=== PATIENT | male | born 1975 | race Hispanic/Latino ===

== ENCOUNTER → 2023-08-06 08:52 | Outpatient (REF) | payer OTHER, SELFPAY ==
[2023-08-06 09:42] LABS: ALT (SGPT) 41 U/L (0-50); AST (SGOT) 36 U/L (17-59); Alkaline Phosphatase 81 U/L (38-126); Blood Urea Nitrogen 19 mg/dl (9-20); Calcium 9.4 mg/dl (8.4-10.2); Carbon Dioxide 27 mmol/L (22-30); Chloride 104 mmol/L (98-107); Glucose 103 mg/dl (70-99); HDL Cholesterol 55 mg/dl; LDL Cholesterol, Calculated 136 mg/dl; Potassium 4.2 mmol/L (3.5-5.1); Sodium 137 mmol/L (135-145); Total Bilirubin 1.4 mg/dl (0.2-1.3); Total Cholesterol 264 mg/dl (50-199); Total Protein 8.2 g/dl (6.3-8.2); Triglyceride 365 mg/dl (10-149); Very Low Density Lipoprotein 73 mg/dl (0-30); eGFR > 60.00
[2023-08-06 11:05] LABS: Glycohemoglobin (HgbA1c) 5.6 % (4.0-5.6)
== END ==
LOC: CLINIC 08:52
PROVIDERS: ATTENDING PHYSICIAN Nurse Practitioner Adult Health
DX: E78.2 Mixed hyperlipidemia (principal); K76.0 Fatty (change of) liver, not elsewhere classified; Z83.3 Family history of diabetes mellitus
CPT/HCPCS: 36415; 80053; 80061; 83036

== ENCOUNTER → 2023-09-24 09:11 | Outpatient (REF) | payer OTHER, SELFPAY ==
[2023-09-24 10:24] LABS: ALT (SGPT) 42 U/L (0-50); AST (SGOT) 32 U/L (17-59); Albumin 4.8 g/dl (3.5-5.0); Alkaline Phosphatase 83 U/L (38-126); Direct Bilirubin 0.3 mg/dl (0.0-0.4); Total Bilirubin 1.1 mg/dl (0.2-1.3); Total Protein 7.7 g/dl (6.3-8.2)
== END ==
LOC: REG 09:11
PROVIDERS: ATTENDING PHYSICIAN Nurse Practitioner Adult Health
DX: E78.2 Mixed hyperlipidemia (principal)
CPT/HCPCS: 36415; 80076

== ENCOUNTER 2023-11-04 08:58 | Emergency (ER) | payer SELFPAY ==
[2023-11-04 08:58] VITALS: BMI 33.4
[2023-11-04 09:09] VITALS: BP 131/87
[2023-11-04] MEDS: NSS 1000 IV (09:45)
--- NOTE | 2023-11-04 09:50 | ED.GENMED ---
History of Present Illness
<Lolita Goodman ERP MANAGER - Last Filed: 11/05/23 09:49>
General
Chief Complaint: Abdominal Pain
Source: patient and family (son at bedside helped interpret. Pt understands some Occitan)
Exam Limitations: none
Time Seen by Provider: 11/04/23 09:15
Nursing documentation reviewed up to this point in time: agreed with
History of Present Illness
History of Present Illness:
48 yo male w h/o appendectomy, HLD presents stating he's had 4 days of increasing abdominal bloating and pain. Denies n/v/d/c. Denies fever/chills. Last BM this a.m.
Past History
<Lolita Goodman, ERP MANAGER - Last Filed: 11/05/23 09:49>
Past History
ED Past Medical History: None
ED Past Surgical History: None
Social History
Tobacco: Non-smoker
Alcohol: None
Drug: None
Personal:
Living: with family
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
Review of Systems
<Lolita Goodman ERP MANAGER - Last Filed: 11/05/23 09:49>
Review of Systems
Allergies reviewed?: Yes
All Other Systems: ROS reviewed and negative except as documented in HPI and ROS
Constitutional: Denies fever
Respiratory: Denies trouble breathing
Cardiac: Denies chest pain
ABD/GI: Reports abdominal pain; Denies nausea, vomiting, diarrhea, constipated, bloody stools or black stools
: Denies dysuria, difficulty voiding or urgency
Musculoskeletal: Reports no symptoms
Skin: Reports no symptoms
Neurological: Reports no symptoms
Phy Exam
<Lolita Goodman, ERP MANAGER - Last Filed: 11/05/23 09:49>
Physical Exam
Physical Exam:
GENERAL: No acute distress. A&Ox3.
CONSTITUTIONAL: Afebrile.
EYES: Clear, conjunctivae normal
ENMT: moist mucus membranes, Pharynx nl
RESPIRATORY: Regular respirations, nonlabored, lungs clear.
CARDIOVASCULAR: Regular rate and rhythm, no murmurs, no rubs.
GI: distended, semi firm, cannot elicit particular area of tenderness with deep palpation, no guarding, no audible BS
MUSCULOSKELETAL: Moves with ease. Well perfused.
SKIN: Warm, dry, normal
PSYCH: Normal mood and affect. Well kept, interactive and appropriate
NEUROLOGIC: Awake, alert and oriented. No focal neurological deficits
Course
<Lolita Goodman ERP MANAGER - Last Filed: 11/05/23 09:49>
Orders/Labs/Results
Orders:
Orders
11/04/23 09:33
CT Abd/Pel (IV only)-DH only Urgent
Comment:
Reason For Exam: pain, distention
11/04/23 09:34
0.9% Sodium Chloride 1000 ml [Nss] 1,000 ml IV BOLUS
11/04/23 09:47
Complete Blood Count/With Diff Urgent
Comprehensive Metabolic Panel Urgent
Lipase Urgent
11/04/23 10:30
Morphine Sulfate 4 mg IV NOW STA
11/04/23 10:43
Urinalysis Reflex To Culture Urgent
Date Specimen was Collected: 11/04/23
Time Specimen was Collected: 10:42
Abnormal Lab Results
11/04/23
09:47
RBC 4.60 L 10^6/uL
(4.70-6.10)
Plt Count 110 L 10^3/uL
(130-400)
MPV 11.9 H fL
(7.4-10.4)
Absolute Monos (auto) 0.9 H 10^3/uL
(0.1-0.6)
Monocytes % 13.7 H %
(1.7-9.3)
Glucose 108 H mg/dl
(70-99)
Total Bilirubin 3.9 H mg/dl
(0.2-1.3)
11/04/23 09:47
11/04/23 09:47
Vital Signs
Initial and Last Documented VS:
Initial Vital Signs
Temp Pulse Resp BP Pulse Ox
98.2 F 70 17 131/87 97
11/04/23 09:09 11/04/23 09:09 11/04/23 09:09 11/04/23 09:09 11/04/23 09:09
Last Documented Vital Signs
Temp Pulse Resp BP Pulse Ox
98.2 F 70 17 124/77 97
11/04/23 09:09 11/04/23 09:09 11/04/23 09:09 11/04/23 10:44 11/04/23 10:45
<Greta Roth, DO - Last Filed: 11/04/23 12:09>
Orders/Labs/Results
Orders:
Orders
11/04/23 09:33
CT Abd/Pel (IV only)-[facility] only Urgent
Comment:
Reason For Exam: pain, distention
11/04/23 09:34
0.9% Sodium Chloride 1000 ml [Nss] 1,000 ml IV BOLUS
11/04/23 09:47
Complete Blood Count/With Diff Urgent
Comprehensive Metabolic Panel Urgent
Lipase Urgent
11/04/23 10:30
Morphine Sulfate 4 mg IV NOW STA
11/04/23 10:43
Urinalysis Reflex To Culture Urgent
Date Specimen was Collected: 11/04/23
Time Specimen was Collected: 10:42
Abnormal Lab Results
11/04/23
09:47
RBC 4.60 L 10^6/uL
(4.70-6.10)
Plt Count 110 L 10^3/uL
(130-400)
MPV 11.9 H fL
(7.4-10.4)
Absolute Monos (auto) 0.9 H 10^3/uL
(0.1-0.6)
Monocytes % 13.7 H %
(1.7-9.3)
Glucose 108 H mg/dl
(70-99)
Total Bilirubin 3.9 H mg/dl
(0.2-1.3)
11/04/23 09:47
11/04/23 09:47
Vital Signs
Initial and Last Documented VS:
Initial Vital Signs
Temp Pulse Resp BP Pulse Ox
98.2 F 70 17 131/87 97
11/04/23 09:09 11/04/23 09:09 11/04/23 09:09 11/04/23 09:09 11/04/23 09:09
Last Documented Vital Signs
Temp Pulse Resp BP Pulse Ox
98.2 F 70 17 124/77 97
11/04/23 09:09 11/04/23 09:09 11/04/23 09:09 11/04/23 10:44 11/04/23 10:45
<Lolita Goodman ERP MANAGER - Last Filed: 11/05/23 09:49>
MDM/Problems Addressed
Differential Diagnosis Includes:
bowel obstruction, diverticulitis, colitis, pancreatitis, GERD
MDM/Problems Addressed:
48 yo male w h/o appendectomy, HLD, GERD on Famotidine, Metamucil. presents stating he's had 4 days of increasing abdominal bloating and pain. Denies n/v/d/c. Denies fever/chills. Last BM this a.m.
10:15 AM
CBC with no clinically significant abnormality
CMP bilirubin elevated at 3.9 otherwise normal
Lipase normal
11:30 AM:
CAT scan abdomen pelvis without p.o. or IV contrast radiology report read:IMPRESSION:
No acute abnormality in the abdomen or pelvis.
Hepatomegaly and hepatic steatosis.
Splenomegaly, new since 2018.
Colonic diverticulosis without acute diverticulitis.
With elevated bilirubin, GB and ducts are normal on CT scan ([place] Syndrome?)
U/A unremarkable.
Case discussed with Dr. Roth who examined pt.
There is nothing in workup today to explain patient's pain. Suspect gastric etiology with his hx of GERD
He is taking his Famotidine and Metamucil as prescribed and also Gas ex
Referred to GI and back to [facility]
He is up and ambulating, appears comfortable.
Ambulated out with normal gait at discharge
<Lolita Goodman, ERP MANAGER - Last Filed: 11/05/23 09:49>
*Critical Care Note
Total Time (30-74mins, 75-104mins- exclusive of procedures): Not Applicable
ED Attending Note
<Lolita Goodman, ERP MANAGER - Last Filed: 11/05/23 09:49>
-
Portions of this chart may have been created with voice recognition software.� Occasional wrong word or��sound alike� substitutions may have occurred due to the inherent limitations of voice recognition software.
<Greta Roth DO - Last Filed: 11/04/23 12:09>
ED Attending Note
Patient seen and examined by attending physician: Yes
I performed the substantive portion of visit, reviewed & personally made and approve the management plan that is documented in note by myself or CLAUDIO.: Yes
I performed a history and physical exam of patient and discussed management with resident, I reviewed resident's note and agree with documented findings and plan of care.: Yes
ED Attending Note:
Patient seen and evaluated at bedside. 48-year-old male presenting for 4 days of abdominal pain with distention. Denies vomiting or changes in bowel habits. Reports history of appendectomy in the past. Denies fevers. Vital signs stable in the
emergency department.
On exam, patient resting comfortably. He is nontoxic. Mild distention to the abdomen. No focal tenderness to the abdomen, soft and nondistended. No CVA tenderness. Workup completed by CLAUDIO with unremarkable laboratory analysis. Patient does
have elevated bilirubin, however no focal tenderness to the right upper quadrant without concern for cholecystitis or choledocholithiasis. Urinalysis without any sign of bilirubin as well. CT abdomen pelvis without acute pathology to explain
patient's symptoms. Patient does have history of GERD. Notes that symptoms are worse with food. Suspect possible gastric component. Ultimately feel the patient is stable for discharge with close interval follow-up with PCP and continued
outpatient supportive therapy
Discharge Plan
Departure
Patient Disposition: Home (Routine Discharge)
Date of Disposition: 11/04/23
Time of Disposition: 12:15
Patient with high blood pressure during this ER visit?: No
Condition: Fair
Discharge Problem:
Abdominal bloating
Instructions: Gas and bloating, Abdominal Pain
Prescriptions:
No Action
hydrocortisone [Proctosol HC] 28.35 GM cream with perineal applicator
28.35 gm TP BID Qty: 1 0RF
Referrals:
Cathleen Flores NP [Family Provider] - Call in 1-3 days for appt
Carri Moore MD [Active] - Next open appointment
Activity Restrictions/Additional Instructions:
As we discussed, nothing worrisome in your workup here today.
Call the clinic today and make an appointment for next week for recheck.
Ask them if they can set you up with an appointment with the GI doctor Dr. Moore
Interventions
Interventions:
*Risk Screen - Suicide Last Done: 11/04/23 12:38
*General Assessment Last Done: 11/04/23 12:38
*Neglect/Abuse Screening Last Done: 11/04/23 12:38
ED- Fall Risk Assessment Last Done: 11/04/23 10:01
*ED COVID-19 Vaccine History Last Done: 11/04/23 12:38
*Nursing Disposition Last Done: 11/04/23 12:38
AA-Urdllh-Abtcnqawwu Assessment Last Done: 11/04/23 10:01
Discharge Date and Time
Discharge Date/Time: 11/04/23 12:40
Print Language: SPANISH
[2023-11-04 10:06] LABS: % Basophils 0.9 % (0-2); % Eosinophils 4.2 % (0-6); % Immature Granulocytes 0.2 % (0-0.5); % Lymphocytes 33.3 % (20.5-51.1); % Monocytes 13.7 % (1.7-9.3); % Neutrophils 47.7 % (42.2-75.2); Absolute Basophils 0.1 10^3/uL (0-0.2); Absolute Eosinophils 0.3 10^3/uL (0-0.7); Absolute Lymphocytes 2.2 10^3/uL (1.2-3.4); Absolute Monocytes 0.9 10^3/uL (0.1-0.6); Absolute Neutrophils 3.2 10^3/uL (1.4-6.5); Hematocrit 40.2 % (39.0-52.0); Hemoglobin 13.9 g/dL (13.0-18.0); Mean Corp Hgb Conc. 34.6 g/dL (33.0-37.0); Mean Corpuscular Hgb 30.2 pg (27.0-31.0); Mean Corpuscular Volume 87.4 fL (80.0-94.0); Mean Platelet Volume 11.9 fL (7.4-10.4); Nucleated Red Blood Cells % 0 % (-); Platelet Count 110 10^3/uL (130-400); Red Cell Dist. Width 12.9 % (11.5-14.5); White Blood Cell Count 6.6 10^3/uL (4.8-10.8)
[2023-11-04 10:18] LABS: ALT (SGPT) 48 U/L (0-50); AST (SGOT) 37 U/L (17-59); Albumin 4.6 g/dl (3.5-5.0); Alkaline Phosphatase 91 U/L (38-126); Blood Urea Nitrogen 18 mg/dl (9-20); Calcium 8.9 mg/dl (8.4-10.2); Carbon Dioxide 26 mmol/L (22-30); Chloride 104 mmol/L (98-107); Estimated Creatinine Clearance > 125 ml/min; Glucose 108 mg/dl (70-99); Lipase 113 U/L (23-300); Sodium 139 mmol/L (135-145); Total Bilirubin 3.9 mg/dl (0.2-1.3); Total Protein 7.5 g/dl (6.3-8.2); eGFR > 60.00
[2023-11-04] MEDS: MORPHINE SULFATE 4 MG IV (10:43)
[2023-11-04 10:44] VITALS: BP 124/77
[2023-11-04 11:03] LABS: Urine Albumin Negative (Neg - Trace); Urine Bilirubin Negative (Negative); Urine Character Clear (Clear); Urine Color Yellow; Urine Glucose Negative (Negative); Urine Ketone Negative (Negative); Urine Leukocyte Negative (Negative); Urine Nitrite Negative (Negative); Urine Occult Blood Negative (Negative); Urine Specific Gravity 1.015 (<1.030); Urine Urobilinogen Negative (Neg - 1+)
== END 2023-11-04 12:40 | disposition home or self-care (01) ==
LOC: EMR 08:58
PROVIDERS: Registered Nurse; EMERGENCY PHYSICIAN Student in an Organized Health Care Education/Training Program; FAMILY PHYSICIAN Nurse Practitioner Adult Health
DX: R14.0 Abdominal distension (gaseous) (principal); K21.9 Gastro-esophageal reflux disease without esophagitis; E78.00 Pure hypercholesterolemia, unspecified
CPT/HCPCS: 99284; 96374; 96361; 74177; 80053; 81003; 83690; 85025; Q9967

== ENCOUNTER → 2023-11-12 10:14 | Outpatient (REF) | payer OTHER, SELFPAY ==
[2023-11-12 11:44] LABS: ALT (SGPT) 43 U/L (0-50); AST (SGOT) 35 U/L (17-59); Albumin 4.7 g/dl (3.5-5.0); Alkaline Phosphatase 84 U/L (38-126); Blood Urea Nitrogen 15 mg/dl (9-20); Carbon Dioxide 27 mmol/L (22-30); Chloride 106 mmol/L (98-107); Glucose 95 mg/dl (70-99); HDL Cholesterol 40 mg/dl; LDL Cholesterol, Calculated 64 mg/dl; Potassium 4.4 mmol/L (3.5-5.1); Sodium 139 mmol/L (135-145); Total Bilirubin 3.3 mg/dl (0.2-1.3); Total Cholesterol 149 mg/dl (50-199); Total Protein 7.5 g/dl (6.3-8.2); Triglyceride 225 mg/dl (10-149); Very Low Density Lipoprotein 45 mg/dl (0-30); eGFR > 60.00
== END ==
LOC: CLINIC 10:14
PROVIDERS: ATTENDING PHYSICIAN Nurse Practitioner Adult Health
DX: E78.2 Mixed hyperlipidemia (principal)
CPT/HCPCS: 80053; 80061

== ENCOUNTER → 2023-12-26 15:48 | Outpatient (REF) | payer OTHER, SELFPAY | LOC: CLINIC 15:48 | PROVIDERS: ATTENDING PHYSICIAN Nurse Practitioner Adult Health | DX: M25.511 Pain in right shoulder (principal) | CPT/HCPCS: 73030 ==

== ENCOUNTER 2024-03-05 17:15 | Emergency (ER) | payer SELFPAY ==
[2024-03-05 17:18] VITALS: BP 163/93
--- NOTE | 2024-03-05 18:31 | ED.GENMED ---
History of Present Illness
General
Chief Complaint: Abdominal Pain
Source: patient and shuttle final inspector (language line)
Exam Limitations: other (Language barrier)
Time Seen by Provider: 03/05/24 18:03
History of Present Illness
History of Present Illness:
This is a 48 year old male that comes in with c/o abd pain. States that about 14 days ago he started with diarrhea and cramping. States that he had this Tuesday, Tue, , Tuesday and Tuesday. Then on Tuesday even though he had diarrhea he took
a laxative as to get everything out. State that after this he started to poop normally but the pain ever went away. States that his poop is still normal but he has seen some blood in the stool. States that he also has left sided abd pain. States
that the pain is also associated with cramping and it forrest. States that he has a mild headache and occasionally urinary burning. Denies any fever, chills, chest pain, SOB, nausea, vomiting, diarrhea, dizziness.
Past History
Past History
ED Past Medical History: Asthma, HTN, Hypercholesterolemia and Other (Diverticulosis)
ED Past Surgical History: Appendectomy, Orthopedic (Left finger surgery, ) and Other (Hemorrhoidectomy)
Social History
Tobacco: Non-smoker
Alcohol: None
Drug: None
Personal:
Living: with family
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
Review of Systems
Review of Systems
All Other Systems: ROS reviewed and negative except as documented in HPI and ROS
Constitutional: Reports no symptoms; Denies fever or chills
EENT: Reports no symptoms
Respiratory: Reports no symptoms; Denies cough or trouble breathing
Cardiac: Reports no symptoms; Denies chest pain
ABD/GI: Reports abdominal pain; Denies nausea, vomiting or diarrhea
: Reports dysuria (occasionally); Denies frequency or urgency
Musculoskeletal: Reports no symptoms
Skin: Reports no symptoms
Neurological: Reports headache (mild headache); Denies dizzy
Psychiatric: Reports no symptoms
Phy Exam
General Physical Exam
General Presentation: well appearing and no apparent distress
General age: appears stated age
General Skin: warm and dry
General Habitus: normal
General Mental: alert
General Hydration: appears well hydrated
ENT Exam
ENT Exam: TM's normal, pharynx normal and neck supple
Eye Exam
Eye Exam: EOMI
Cardiovascular Exam
Cardiovascular Exam: regular rate/rhythm, no edema, no murmur and normal peripheral pulses
Pulmonary Exam
Pulmonary Exam: lungs clear, no respiratory distress, no rales, chest non tender, no crackles, no rhonchi, no wheezing and no cough
Gastrointestinal Exam
Gastrointestinal Exam: normal bowel sounds, soft, no organomegaly, no pulsatile mass, non distended and tender (Left sided tenderness with palpation)
Musculoskeletal Exam
Musculoskeletal Exam: full ROM and no edema
Skin Exam
Skin Exam: normal color, warm/dry, no rash and no petechia
Course
Orders/Labs/Results
Orders:
Orders
03/05/24 18:29
0.9% Sodium Chloride 1000 ml [Nss] 1,000 ml IV BOLUS
Nursing to Place Non Medication Order As Directed
Physician Order: Please get weight
Above order entered?: Yes
03/05/24 18:31
CT Abd/pelvis W Iv Cont Urgent
Comment:
Reason For Exam: Left sided abd pain
03/05/24 18:40
Complete Blood Count/With Diff Urgent
Comprehensive Metabolic Panel Urgent
Lipase Urgent
03/05/24 19:28
Urinalysis Reflex To Culture Urgent
Date Specimen was Collected: 03/05/24
Time Specimen was Collected: 19:26
Abnormal Lab Results
03/05/24
18:40
MPV 11.2 H fL
(7.4-10.4)
Absolute Monos (auto) 0.8 H 10^3/uL
(0.1-0.6)
Creatinine 0.6 L mg/dL
(0.7-1.3)
Glucose 118 H mg/dl
(70-99)
Total Bilirubin 1.4 H mg/dl
(0.2-1.3)
03/05/24 18:40
03/05/24 18:40
Glucose nonfasting. Total arnaldo very slightly elevated. Lipase normal at 133, Urine negative for infection.
Vital Signs
Initial and Last Documented VS:
Initial Vital Signs
Temp Pulse Resp BP Pulse Ox
97.9 F 71 16 163/93 97
03/05/24 17:18 03/05/24 17:18 03/05/24 17:18 03/05/24 17:18 03/05/24 17:18
Last Documented Vital Signs
Temp Pulse Resp BP Pulse Ox
97.9 F 71 16 126/85 96
03/05/24 17:18 03/05/24 17:18 03/05/24 17:18 03/05/24 20:00 03/05/24 20:00
MDM/Problems Addressed
Differential Diagnosis Includes:
Colitis, Diverticulitis
MDM/Problems Addressed:
This is a 48 year old Niuean speaking male that comes in with c/o left sided abd pain. States that he had diarrhea and cramping 14 days ago. Then his stool went back to normal but the pain never went away.
Will get labs, urine, CT scan and give IV fluids.
Back into see patient. Via the language line explained that the CT scan is negative for any acute process. Patient to follow up with the GI specialist for further evaluation. Patient to increase his water intake to 8-8oz glasses daily. Use Tylenol
or Ibuprofen for any discomfort. Return with fever, increased or changing pain.
Chronic conditions affecting care:
Diverticulosis
Acute Exacerbation and/or Progression of Chronic Illness:
Diverticulosis
*Radiology
Radiology exam reviewed: radiology read reviewed (CT scan-Stable 3-4mm right lower lung nodule, likely benigh. Mild hepatomegaly with diffuse fatty liver. Sigmoid diverticulosis. No acute abnormality seen. Markedly limited evaluation of intestinal
tract without oral contrast. Possible small hiatal hernia. )
*Pulse Oximetry
Patient hypoxic: no
*EKG
Interpreted by ED Provider?: NA
Rate: EKG- N/A
*Auto Roller Interpretation
Rate: Auto Roller- N/A
*Critical Care Note
Total Time (30-74mins, 75-104mins- exclusive of procedures): Not Applicable
ED Attending Note
-
Portions of this chart may have been created with voice recognition software.� Occasional wrong word or��sound alike� substitutions may have occurred due to the inherent limitations of voice recognition software.
Discharge Plan
Departure
Patient Disposition: Home (Routine Discharge)
Date of Disposition: 03/05/24
Time of Disposition: 20:11
Patient with high blood pressure during this ER visit?: No
Condition: Good
Covid-19: Not Applicable
Discharge Problem:
Abdominal pain
Instructions: Abdominal Pain
Prescriptions:
No Action
hydrocortisone [Proctosol HC] 28.35 GM cream with perineal applicator
28.35 gm TP BID Qty: 1 0RF
Referrals:
Jesus Pond, DO [Active] - Follow up in 5-7 days
UNKNOWN - PT DOES,NOT KNOW [Family Provider] -
Activity Restrictions/Additional Instructions:
As discussed, your blood work is normal. Your CT scan is negative for any acute process. Your urine is negative for infection. Please follow up with the GI specialist for further evaluation. They may need to do an endoscopy for further evaluation.
IF YOU HAVE INCREASED OR CHANGING PAIN, FEVER, OR YOU HAVE ANY OTHER CONCERNS PLEASE RETURN TO THE EMERGENCY ROOM.
Interventions
Interventions:
*Risk Screen - Suicide Last Done: 03/05/24 17:19
*General Assessment Last Done: 03/05/24 19:36
*Neglect/Abuse Screening Last Done: 03/05/24 17:19
*ED COVID-19 Vaccine History Last Done: 03/05/24 17:19
OG-Msldrv-Yenjxgkkib Assessment Last Done: 03/05/24 18:43
Discharge Date and Time
Print Language: GERMAN
[2024-03-05 18:40] VITALS: BP 134/92
[2024-03-05] MEDS: NSS 1000 IV (18:41)
[2024-03-05 18:55] LABS: % Basophils 0.8 % (0-2); % Eosinophils 4.9 % (0-6); % Immature Granulocytes 0.4 % (0-0.5); % Lymphocytes 33.6 % (20.5-51.1); % Monocytes 8.2 % (1.7-9.3); % Neutrophils 52.1 % (42.2-75.2); Absolute Basophils 0.1 10^3/uL (0-0.2); Absolute Eosinophils 0.5 10^3/uL (0-0.7); Absolute Lymphocytes 3.3 10^3/uL (1.2-3.4); Absolute Monocytes 0.8 10^3/uL (0.1-0.6); Absolute Neutrophils 5.1 10^3/uL (1.4-6.5); Hematocrit 41.2 % (39.0-52.0); Hemoglobin 15.1 g/dL (13.0-18.0); Mean Corp Hgb Conc. 36.7 g/dL (33.0-37.0); Mean Corpuscular Hgb 29.5 pg (27.0-31.0); Mean Corpuscular Volume 80.6 fL (80.0-94.0); Mean Platelet Volume 11.2 fL (7.4-10.4); Nucleated Red Blood Cells % 0 % (-); Platelet Count 191 10^3/uL (130-400); Red Blood Cell Count 5.11 10^6/uL (4.70-6.10); Red Cell Dist. Width 12.4 % (11.5-14.5); White Blood Cell Count 9.8 10^3/uL (4.8-10.8)
[2024-03-05 19:00] VITALS: BP 134/80
[2024-03-05 19:09] LABS: ALT (SGPT) 47 U/L (0-50); AST (SGOT) 35 U/L (17-59); Albumin 4.9 g/dl (3.5-5.0); Alkaline Phosphatase 65 U/L (38-126); Blood Urea Nitrogen 19 mg/dl (9-20); Calcium 9.5 mg/dl (8.4-10.2); Carbon Dioxide 22 mmol/L (22-30); Chloride 105 mmol/L (98-107); Glucose 118 mg/dl (70-99); Sodium 141 mmol/L (135-145); Total Bilirubin 1.4 mg/dl (0.2-1.3); Total Protein 7.8 g/dl (6.3-8.2); eGFR > 60.00
[2024-03-05 19:10] LABS: Lipase 133 U/L (23-300)
[2024-03-05 19:45] LABS: Urine Albumin Trace (Neg - Trace); Urine Bilirubin Negative (Negative); Urine Character Clear (Clear); Urine Color Yellow; Urine Glucose Negative (Negative); Urine Ketone Negative (Negative); Urine Leukocyte Negative (Negative); Urine Nitrite Negative (Negative); Urine Occult Blood Negative (Negative); Urine Urobilinogen Negative (Neg - 1+)
[2024-03-05 20:00] VITALS: BP 126/85
== END 2024-03-05 20:25 | disposition home or self-care (01) ==
LOC: EMR 17:15
PROVIDERS: Clinical Nurse Specialist Family Health; EMERGENCY PHYSICIAN Emergency Medicine
DX: R10.9 Unspecified abdominal pain (principal); J45.909 Unspecified asthma, uncomplicated; I10 Essential (primary) hypertension; E78.00 Pure hypercholesterolemia, unspecified; Z90.49 Acquired absence of other specified parts of digestive tract
CPT/HCPCS: 96360; 99284; 74177; 80053; 81003; 83690; 85025; Q9967

== ENCOUNTER → 2024-06-02 08:26 | Outpatient (REF) | payer OTHER, SELFPAY ==
[2024-06-02 09:40] LABS: ALT (SGPT) 55 U/L (0-50); AST (SGOT) 36 U/L (17-59); Albumin 4.9 g/dl (3.5-5.0); Alkaline Phosphatase 78 U/L (38-126); Blood Urea Nitrogen 20 mg/dl (9-20); Calcium 9.3 mg/dl (8.4-10.2); Carbon Dioxide 27 mmol/L (22-30); Chloride 103 mmol/L (98-107); Glucose 103 mg/dl (70-99); HDL Cholesterol 51 mg/dl; LDL Cholesterol, Calculated 102 mg/dl; Potassium 4.4 mmol/L (3.5-5.1); Sodium 140 mmol/L (135-145); Total Bilirubin 1.8 mg/dl (0.2-1.3); Total Cholesterol 198 mg/dl (50-199); Total Protein 7.7 g/dl (6.3-8.2); Triglyceride 225 mg/dl (10-149); Very Low Density Lipoprotein 45 mg/dl (0-30); eGFR > 60.00
== END ==
LOC: CLINIC 08:26
PROVIDERS: ATTENDING PHYSICIAN Nurse Practitioner Adult Health
DX: E78.2 Mixed hyperlipidemia (principal)
CPT/HCPCS: 36415; 80053; 80061

== ENCOUNTER 2024-06-15 16:14 | Emergency (ER) | payer OTHER, SELFPAY ==
[2024-06-15] VITALS (8 sets, daily range): BP systolic 118–164; BP diastolic 74–92
[2024-06-15 17:11] LABS: % Basophils 0.8 % (0-2); % Eosinophils 4.4 % (0-6); % Immature Granulocytes 0.3 % (0-0.5); % Lymphocytes 32.9 % (20.5-51.1); % Monocytes 11.3 % (1.7-9.3); % Neutrophils 50.3 % (42.2-75.2); Absolute Basophils 0.1 10^3/uL (0-0.2); Absolute Eosinophils 0.4 10^3/uL (0-0.7); Absolute Lymphocytes 2.9 10^3/uL (1.2-3.4); Absolute Neutrophils 4.5 10^3/uL (1.4-6.5); Hematocrit 43.7 % (39.0-52.0); Hemoglobin 15.2 g/dL (13.0-18.0); Mean Corp Hgb Conc. 34.8 g/dL (33.0-37.0); Mean Corpuscular Hgb 30.1 pg (27.0-31.0); Mean Corpuscular Volume 86.5 fL (80.0-94.0); Mean Platelet Volume 11.4 fL (7.4-10.4); Nucleated Red Blood Cells % 0 % (-); Platelet Count 166 10^3/uL (130-400); Red Blood Cell Count 5.05 10^6/uL (4.70-6.10); Red Cell Dist. Width 12.3 % (11.5-14.5); White Blood Cell Count 8.9 10^3/uL (4.8-10.8)
[2024-06-15 17:16] LABS: Lactic Acid 0.8 mmol/L (0.7-2.0)
[2024-06-15 17:19] LABS: ALT (SGPT) 49 U/L (0-50); AST (SGOT) 37 U/L (17-59); Albumin 4.6 g/dl (3.5-5.0); Alkaline Phosphatase 70 U/L (38-126); Blood Urea Nitrogen 25 mg/dl (9-20); Calcium 9.2 mg/dl (8.4-10.2); Carbon Dioxide 27 mmol/L (22-30); Chloride 103 mmol/L (98-107); Glucose 91 mg/dl (70-99); Lipase 121 U/L (23-300); Potassium 3.9 mmol/L (3.5-5.1); Sodium 139 mmol/L (135-145); Total Bilirubin 1.6 mg/dl (0.2-1.3); Total Protein 7.4 g/dl (6.3-8.2); eGFR > 60.00
[2024-06-15] MEDS: TORADOL 15 MG IV (20:00)
--- NOTE | 2024-06-15 20:06 | ED.GENMED ---
History of Present Illness
General
Chief Complaint: Abdominal Pain
Time Seen by Provider: 06/15/24 19:12
History of Present Illness
History of Present Illness:
48-year-old male with history of asthma presenting to the emergency department for lower abdominal pain. Patient reports symptoms for the past 2 weeks. Does also note dysuria and urinary frequency. He feels that the symptoms started after he took
a medication for erectile dysfunction. He denies any significant pain to the penis or the testicles. He denies any vomiting. He denies any changes in stool. Notes history of appendectomy in the past, denies additional surgeries. Denies any
fever. Denies chest pain or difficulty breathing. Denies additional acute medical complaints.
Patient is Belarusian-speaking with interpretation by radiological metallurgist device
Past History
Past History
ED Past Medical History: Asthma, HTN, Hypercholesterolemia and Other (Diverticulosis)
ED Past Surgical History: Appendectomy, Orthopedic (Left finger surgery, ) and Other (Hemorrhoidectomy)
Social History
Tobacco: Non-smoker
Alcohol: None
Drug: None
Personal:
Living: with family
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
Phy Exam
Physical Exam
Physical Exam:
General: Well-appearing, no clinical signs of dehydration, nontoxic and in no acute distress
HEENT: protecting airway
Neck: appears supple
CV: Normal heart rate, regular rhythm, no evidence of cyanosis
Resp: No accessory muscle use, no increased work of breathing, lungs clear to auscultation bilaterally
Abd: Soft and non-distended, mild tenderness to lower abdomen without rebound or guarding
Extremities: No deformities, no swelling, no erythema, pulses and sensation intact
Neuro: alert, no focal neurologic deficit
: deferred
Rectal: deferred
Psych: Normal affect
Skin: Intact
Course
Orders/Labs/Results
Orders:
Orders
06/15/24 16:44
Complete Blood Count/With Diff Urgent
Comprehensive Metabolic Panel Urgent
Lactate Level [Lactic Acid] Urgent
Lipase Urgent
06/15/24 19:35
Urinalysis Reflex To Culture Urgent
Date Specimen was Collected: 06/15/24
Time Specimen was Collected: 19:32
06/15/24 19:41
CT Abd/pelvis W Iv Cont Urgent
Comment:
Reason For Exam: lower abdominal pain, urinary symptoms
Ketorolac [Toradol] 15 mg IV NOW STA
Abnormal Lab Results
06/15/24
16:44
MPV 11.4 H fL
(7.4-10.4)
Absolute Monos (auto) 1.0 H 10^3/uL
(0.1-0.6)
Monocytes % 11.3 H %
(1.7-9.3)
BUN 25 H mg/dl
(9-20)
Total Bilirubin 1.6 H mg/dl
(0.2-1.3)
06/15/24 16:44
06/15/24 16:44
Vital Signs
Initial and Last Documented VS:
Initial Vital Signs
Temp Pulse Resp BP Pulse Ox
98.3 F 70 20 164/90 95
06/15/24 16:25 06/15/24 16:25 06/15/24 16:25 06/15/24 16:25 06/15/24 16:25
Last Documented Vital Signs
Temp Pulse Resp BP Pulse Ox
98.4 F 71 20 118/74 97
06/15/24 19:38 06/15/24 22:06 06/15/24 22:06 06/15/24 22:06 06/15/24 22:06
MDM/Problems Addressed
MDM/Problems Addressed:
48-year-old male presenting to the emergency department for lower abdominal pain for 2 weeks with urinary symptoms. Vital signs are significant for high blood pressure, however resolved without intervention
On exam patient is resting comfortably, no acute distress. Generalized tenderness to lower abdomen, most notably in the suprapubic region. Symptoms appear consistent with possible urinary tract infection. Genitourinary exam is unremarkable.
Patient had laboratory analysis prior to my assessment, unremarkable. Pending urinalysis. Given duration of symptoms, will plan for CT imaging.
22:20 -patient's labs are unremarkable. Urine without sign of infection. CT without acute intra-abdominal process. Unclear source of patient's symptoms, however at this time does not appear to be anything emergent. Feel stable for discharge with
continued outpatient primary care follow-up. Return precautions discussed and patient verbalized understanding
*Critical Care Note
Total Time (30-74mins, 75-104mins- exclusive of procedures): Not Applicable
ED Attending Note
-
Portions of this chart may have been created with voice recognition software.� Occasional wrong word or��sound alike� substitutions may have occurred due to the inherent limitations of voice recognition software.
Discharge Plan
Departure
Prescriptions:
No Action
atorvastatin
10 mg PO DAILY
famotidine
20 mg PO DAILY
albuterol
2 inh inhalation Q4H PRN (Reason: SOB)
tadalafil
5 mg PO DAILY
Referrals:
Cathleen Flores, GRADE RECORDER [Family Provider] -
Interventions
Interventions:
*Risk Screen - Suicide Last Done: 06/15/24 19:38
*General Assessment Last Done: 06/15/24 16:25
*Neglect/Abuse Screening Last Done: 06/15/24 19:38
ED- Fall Risk Assessment Last Done: 06/15/24 19:38
*ED COVID-19 Vaccine History Last Done: 06/15/24 19:38
SD-Npqksp-Zsxtfjanja Assessment Last Done: 06/15/24 19:38
Discharge Date and Time
Print Language: CITIZEN OF [place]
[2024-06-15 20:08] LABS: Urine Albumin Negative (Neg - Trace); Urine Bilirubin Negative (Negative); Urine Character Clear (Clear); Urine Color Yellow; Urine Glucose Negative (Negative); Urine Ketone Negative (Negative); Urine Leukocyte Negative (Negative); Urine Nitrite Negative (Negative); Urine Occult Blood Negative (Negative); Urine Urobilinogen Negative (Neg - 1+)
== END 2024-06-15 22:39 | disposition home or self-care (01) ==
LOC: EMR 16:14
PROVIDERS: Emergency Medicine; EMERGENCY PHYSICIAN Student in an Organized Health Care Education/Training Program; FAMILY PHYSICIAN Nurse Practitioner Adult Health
DX: R10.30 Lower abdominal pain, unspecified (principal); R30.0 Dysuria; R35.0 Frequency of micturition; E78.00 Pure hypercholesterolemia, unspecified; I10 Essential (primary) hypertension; J45.909 Unspecified asthma, uncomplicated
CPT/HCPCS: 96374; 99284; 74177; 80053; 81003; 83605; 83690; 85025; Q9967